=== PATIENT | male | born 1965 | race Caucasian/White ===

== ENCOUNTER 2023-11-05 18:17 | Observation (INO) ==
[2023-11-05 19:41] LABS: Basophils # (auto) 0.02 K/uL (0.00-0.20); Basophils % (auto) 0.3 %; Eosinophils # (auto) 0.11 K/uL (0.00-0.50); Eosinophils % (auto) 1.9 %; Hemoglobin 14.1 g/dl (14.0-18.0); Immature Granulocytes # (auto) 0.03 K/uL (0.01-0.20); Immature Granulocytes % (auto) 0.5 %; Lymphocytes # (auto) 1.66 K/uL (1.20-3.40); Mean Corpuscular Hemoglobin 33.7 pg (25.0-34.0); Mean Corpuscular Hgb Conc 34.4 g/dL (32.0-36.0); Mean Corpuscular Volume 98.1 fL (80.0-100.0); Mean Platelet Volume 9.8 fL (9.4-12.4); Monocytes # (auto) 0.73 K/uL (0.11-0.59); Monocytes % (auto) 12.3 %; Neutrophils # (auto) 3.38 K/uL (1.40-6.50); Platelet Count 145 K/uL (130-400); RDW Coefficient of Variation 12.5 % (11.5-14.5); RDW Standard Deviation 45.8 fL (36.4-46.3); Red Blood Count 4.18 M/uL (4.70-6.10); White Blood Count 5.93 K/ul (4.8-10.8)
[2023-11-05 19:54] LABS: Albumin Globulin Ratio 1.1 (0.9-2); Albumin Level 3.8 gm/dl (3.4-5.0); BUN Creatinine Ratio 12.9 (10-20); Bilirubin,Total 0.5 mg/dl (0.2-1.0); Calcium 8.6 mg/dl (8.6-10.3); Creatinine Clr Calc Pharmacy 81.8 ml/min; Est GFR (African American) 69.4 ml/min; Est GFR (Non-African American) 59.9 ml/min; Globulin 3.5 gm/dl (2.5-4.0); Potassium 3.5 mmol/L (3.5-5.1); Total Protein 7.3 gm/dl (6.0-8.3)
[2023-11-05 20:49] LABS: Troponin I High Sensitivity 43.5 pg/ml (0-20)
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
[2023-11-05] MEDS: OPTIRAY 320 100ml IV ONE (21:25)
[2023-11-05 21:27] LABS: Appearance Urine Clear (Clear); Bacteria Urine Automated Negative (Negative); Bilirubin Urine Negative (Negative); Blood Urine Trace (Negative); Color Urine Yellow; Epithelial Cell Urine Auto 0-5 /lpf (0-5); Glucose Urine UA Negative (Negative); Ketones Urine Negative (Negative); Leukocyte Esterase Urine Negative (Negative); Nitrite Urine Negative (Negative); Protein Urine Negative (Negative); RBC Urine Automated 0-4 /hpf (0-4); Specific Gravity Urine 1.007 (1.000-1.030); Urobilinogen Urine Negative (Negative); pH Urine 5.5 (4.5-7.5)
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
[2023-11-05 23:49] LABS: Amphetamines+Metham, Urine Neg (Neg); Barbiturates, Urine Neg (Neg); Benzodiazepine, Urine Neg (Neg); Cocaine, Urine Neg (Neg); MDMA (Ecstacy), Urine Neg (Neg); Marijuana, Urine Neg (Neg); Methadone, Urine Neg (Neg); Opiate, Urine Neg (Neg); Phencyclidine, Urine Neg (Neg)
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
[2023-11-05] MEDS ORDERED: POLYETHYLENE (MIRALAX) 17 GM PACK PO PRN (23:59)
[2023-11-05] MEDS ORDERED: ACETAMINOPHEN 325 MG TAB PO PRN (23:59)
[2023-11-06] MEDS ORDERED: LORazepam 1 MG in SYRINGE 0.5 ML IV PRN (00:04)
[2023-11-06 02:05] LABS: Urine Potassium 14.3 mmol/L
[2023-11-06 05:10] LABS: Troponin I High Sensitivity 37.9 pg/ml (0-20)
[2023-11-06 08:44] LABS: Chol HDL Ratio 3.6 (0-5)
[2023-11-06 08:58] LABS: Estimated Average Glucose 111 mg/dl; Hemoglobin A1C 5.5 % (4.5-5.6)
[2023-11-06] MEDS: OPTIRAY 320 125ml IV ONE (09:18)
[2023-11-06] MEDS: FOLIC ACID 1 MG TAB PO SCH (09:30)
[2023-11-06] MEDS: amLODIPine BESYLATE 5 MG TAB PO SCH (09:30)
[2023-11-06] MEDS: THIAMINE HCL 100 MG TAB PO SCH (09:30)
[2023-11-06 09:58] LABS: BUN Creatinine Ratio 15.2 (10-20); Calcium 8.8 mg/dl (8.6-10.3); Creatinine Clr Calc Pharmacy 117.4 ml/min; Est GFR (African American) 107.4 ml/min; Est GFR (Non-African American) 92.6 ml/min; Potassium 4.5 mmol/L (3.5-5.1)
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
--- NOTE | 2023-11-06 11:08 | Electrocardiogram Report ---
Test Reason : Blood Pressure : / mmHG Vent. Rate : 109 BPM Atrial Rate : 109 BPM P-R Int : 190 ms QRS Dur : 096 ms QT Int : 348 ms P-R-T Axes : 058 -14 042 degrees QTc Int : 468 ms Sinus tachycardia Otherwise normal ECG No previous ECGs available Confirmed by Manny Salinas ([id number]) on 11/06/2023 11:07:38 AM Referred By: REFERRED SELF Confirmed By:Manny Salinas
--- NOTE | 2023-11-06 11:23 | XCELERA ---
[id number] [id number]
--- NOTE | 2023-11-06 12:47 | CT Scan Report ---
Exam(s): CT HEAD Without Contrast ADDENDUM - Added by José Saldana MD on 11/05/2023 11:28 PM (-05:00) Mucous retention cyst in the LEFT MAXILLARY sinus. EXAM: CT Head Without Intravenous Contrast CLINICAL HISTORY: Reason for exam: Syncopal Episode. TECHNIQUE: Axial computed tomography images of the head/brain without intravenous contrast. CTDI is 36.678 mGy and DLP is 624.41 mGy-cm. Automated exposure control was utilized for the study. A dose lowering technique was utilized adhering to the principles of ALARA. COMPARISON: No relevant prior studies available. FINDINGS: No acute intracranial hemorrhage. No midline shift or mass effect. The territorial martinez-white matter differentiation is maintained throughout. Age-related cerebral volume loss. Periventricular and subcortical white matter hypoattenuation, consistent with chronic microangiopathy. The visualized orbits appear grossly unremarkable. The calvarium is intact. Mucous retention cyst in the LEFT medullary sinus. IMPRESSION: No acute intracranial hemorrhage, midline shift, or mass effect. Electronically signed by: José Saldana MD 11/05/23 23:28 PM
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
--- OUTSIDE RECORDS SUMMARY | 2023-11-06 15:01 | External Medical Summary | Continuity of Care Document ---
Author Name Unknown Organization [facility] [address] Address [address] [facility] [place], [place] [id number] [facility] [id number] Date(s): 10/27/23 - 10/27/23 [facility] [address] [facility] [place], [place] [id number] Encounter Diagnosis Abscess(Discharge Diagnosis) - 10/27/23 Discharge Disposition: Home or Self Care Attending Physician: MARIEL Cam Holly C Referring Physician: MARIEL Okeefe Kimberly A Allergies, Adverse Reactions, Alerts Substance Reaction Severity Status Allergy Not found in Search 1 Active 1seasonal allergies Assessment and Plan Extracted from: Title:Dermatology Office Visit Note Author:MARIEL Cam Holly C Date:10/27/23 1.Abscess PROCEDURE- I &D of cystic lesion.Risks and benefits reviewed including pain, bleeding, infection, failure, need for further procedure, scar formation, recurrence of the lesion.Timeout performed. Verbal consent obtained.After full discussion about risks and benefits and all questions answered, patient agreed to the procedure. The area was cleansed with isopropyl alcohol. Injection of 1% lidocaine used toAnesthetize.#11 blade used to pittman and incise the cyst and gentle pressure was applied to drain the cyst.Loculations were broken up with a small curette and any fluid was expressed.abscess was packed. Vaseline and pressure bandage applied.Home care instructions reviewed.Patient tolerated the procedure well. Start Bactrim DS 1 pill BID x 7 day will change packing and bandage daily. Return Thursday for nurse visit to check would and packing. Return in 2 weeks to check cyst. Advised patient to call with any problems, questions, or concerns. States understanding. Patient was seen independently,Dr Arana for immediate collaboration as needed during this visit. Immunizations Given and Recorded Vaccine Date Status Refusal Reason tetanus/diphtheria/pertuss, acel (Tdap) 09/08/22 Christine bennett SARS-CoV-2 (COVID-19) mRNA BNT-162b2 vax 1 12/03/20 Recorded SARS-CoV-2 (COVID-19) mRNA BNT-162b2 vax 2 11/12/20 Recorded influenza virus vaccine, inactivated 05/31/18 Give n hepatitis B adult vaccine 01/17/13 Recorded hepatitis B adult vaccine 08/17/12 Recorded hepatitis B adult vaccine 07/07/12 Recorded 1Result Comment: 2022-09-08: Historical information-source unspecified 2Result Comment: 2022-09-08: Historical information-source unspecified Medications amLODIPine 10 mg oral tablet Start: 07/27/23 9:52:00 EST, 1 tab, PO, Daily, Disp# 90 tab, Refills: 3, Pharmacy: [facility] Start Date: 07/27/23 Stop Date: 07/21/24 Status: Ordered Bactrim DS 800 mg-160 mg oral tablet Start: 10/27/23 9:17:00 EST, 1 tab, PO, bid, Disp# 14 tab, Refills: 0, take 1 pill twice a day, Pharmacy: [id number] Start Date: 10/27/23 Status: Ordered colchicine 0.6 mg oral tablet Start: 09/08/22 8:54:00 EST, See Instructions, Disp# 30 tab, Refills: 3, 1 tab PO Daily at the first sign of a gout flare followed by 0.6 mg one hour later, PRN: as needed for gout pain, Pharmacy: [facility] Start Date: 09/08/22 Status: Ordered hydrochlorothiazide-losartan 12.5 mg-100 mg oral tablet Start: 10/05/23 7:53:00 EST, 1 tab, PO, Daily, Disp# 90 tab, Refills: 3, Pharmacy: [facility] Start Date: 10/05/23 Stop Date: 09/29/24 Status: Ordered multivitamin Start: 10/05/23 7:26:00 EST, 1 tab, PO, Daily Start Date: 10/05/23 Status: Ordered Mental Status 10/27/23 Barriers to Learning one year None evide nt Mandatory Health Literacy Documentation Yes Health Literacy Communication Barriers N ever Primary Language Khmer Problem List Condition Confirmation Course Effective Dates Status Health atus Informant Gout Confirmed Active HTN, goal below 140/90 Confirmed Active Loss of hearing Confirmed Active Adult general medical exam Confirmed Active Seasonal allergies Confirmed Active Sinus 1 Confirmed Active Tobacco abuse Confirmed Active Weight disorder Confirmed Active 1sinus issues Diagnosis Diagnosis Type Effective Dates Health Status Clini radha Service Informant Abscess Discharge Diagnosis 10/27/23 Procedures Procedure Date Related Diagnosis Body Site Status Colonoscopy 1 10/19/18 Completed Polypectomy- pathology 2 10/19/18 Completed Right Knee Two Views. 3 11/29/12 C ompleted 1The examined portion of the ileum was normal. - One 5 mm polyp in the cecum, removed with a cold snare. Resected and retrieved. - The examination was otherwise normal. - The distal rectum and anal verge are normal on retroflexion view. 2A. Cecum, polyp, polypectomy: tubular adenoma. [facility] Social History Social History Type Response Smoking Status Never smoked cigaret marlon Sex Male 1snuff 1/2 can a day Dermatology Outpatient Note * MD Wei, Asya Mccain: MODIFY MD Wei, Asya Mccain: MODIFY, MODIFY Event Display: Dermatology Outpt Note Authored Date: [id number] Chief Complaint cyst on back History of Present Illness Here for cyst on back, has had for 15 yearswith no problems. Has always been large. 3 weeks ago saw his family doctor who checked it and a couple days later it became very tender, sore, red,and a few days ago started drainingon its owna white to yellowbloody discharge with a bad odor.No previous treatment. Review of Systems Eyes fevers, chills, fatigue, or red streaksfrom the cyst. Physical Exam Well developed, well nourished. no acute distress. normal mood and affect. alert and oriented x 3. Focused skin exam was performed today of theback. Proximately 7 cm, erythemic, tender, edematous,cystic lesion, withopeningwith yellowodorous drainage on left upper mid back. Further exam was declined. Patient denies any other lesions of concern. Assessment/Plan 1.Abscess PROCEDURE- I &D of cystic lesion.Risks and benefits reviewed including pain, bleeding, infection, failure, need for further procedure, scar formation, recurrence of the lesion.Timeoutperformed. Verbal consent obtained.After full discussion about risks and benefits and all questions answered, patient agreed to the procedure. The area was cleansed with isopropyl alcohol. Injection of 1% lidocaine used toAnesthetize.#11 blade used to pittman and incise the cyst and gentlepressure was applied to drain the cyst.Loculations were broken up with a small curette and any fluid was expressed.abscess was packed. Vaseline and pressure bandage applied.Home care instructions reviewed.Patient tolerated the procedure well. Start Bactrim DS 1 pill BID x 7 day will change packing and bandage daily. Return Thursday for nurse visit to check would and packing. Return in 2 weeks to check cyst. Advised patient to call with any problems, questions, or concerns. States understanding. Patient was seenindependently,Dr Arana for immediate collaboration as needed during this visit. Attestation Discussed with Maddi, I would recommend a wound culture with an I& D in future. At this point, on Bactrim and area has already been treated. Problem List/Past Medical History Ongoing Adult general medical exam Gout HTN, goal below 140/90 Loss of hearing Seasonal allergies Sinus Tobacco abuse Weight disorder Historical HTN (hypertension) Right knee pain Routine General Medical Examination at a [facility] Procedure/Surgical History Colonoscopy (10/19/2018)Polypectomy- pathology (10/19/2018)Right Knee Two Views. 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 Exercise - Occasional exercise Home/Environment - Low Risk Nutrition/Health - Low Risk Substance Abuse - Denies Substance Abuse Tobacco - Denies Tobacco Use Use:Unknown if ever smoked Smokeless tobacco use:Smokeless tobacco user within last 30 days - Comments: snuff 1/2 can a day Family History Seizure: Mother. Ulcerative colitis: Sister. Health Status Family Member(s) Electronic Signature on File Electronically Reviewed/Signed by: Maddi Cam PA-C Author Signature Dt/Tm:10/27/2023 10:40 AM Department of Dermatology Electronically Reviewed/Signed by: Asya Carvajal MD Cosigner Signature Dt/Tm: 10/27/2023 11:18 AM Department of Dermatology [facility] Patient Care team information Care Team Related Persons Name: JUAN JOSE ADAMES Elder Address: U Address: home [address] [place] [phone]
--- OUTSIDE RECORDS SUMMARY | 2023-11-06 15:01 | External Medical Summary | Continuity of Care Document ---
Author Name Unknown Organization [facility] [address] [facility] [address] [id number] Encounter [facility] [id number] Date(s): 10/05/23 - 10/05/23 [facility] [address] [facility] [address] [facility] [address] [facility], [facility] [address] [place] [address] [phone] Encounter Diagnosis Body mass index [BMI] 33.0-33.9, adult(Discharge Diagnosis) - 10/05/23 Adult general medical exam(Discharge Diagnosis) - 10/05/23 Family history of ulcerative colitis(Discharge Diagnosis) - 10/05/23 Gout(Discharge Diagnosis) - 10/05/23 HTN, goal below 140/90(Discharge Diagnosis) - 10/05/23 Sebaceous cyst(Discharge Diagnosis) - 10/05/23 Discharge Disposition: Home or Self Care Attending Physician: MARIEL Okeefe Kimberly A Allergies, Adverse Reactions, Alerts Substance Reaction Severity Status Allergy Not found in Search 1 Active 1seasonal allergies Assessment and Plan Extracted from: Title:CPE Author:MARIEL Okeefe Kimberly A Date:10/05/23 1.Adult general medical ex am - encouraged diet and exercise regimen appropriate for patient age and condition - routine dental and eye care per continuity -Vaccinations reviewed.Patient duefor _vaccine. -screening labs reviewed. CBC, lipid panel, A1C, and CMP already ordered. - screening for colon cancerwith colonoscopy due this year - continue to stay active, but always use caution - Follow up in1 yearfor CPE 2.Sebaceous cyst STATUS:Chronic stable. -Has been there for at least 15 years -Has not noticed any discharge or drainage, bleeding or pain -Does not think it has grown but is not certain -Is on the upper middle back -Approximately size of golf ball, if not bigger DATA:Labs reviewed. GOAL:Maintain stability. PLAN:Cont current monitoring. Referral to dermatology for excision. 3.Gout STATUS:Chronic stable. -Most recent uric acid was 8.4 -Was at camp the weekend prior to testing with poor diet and increased beer consumption -Uses Colchicine as needed with improvement -Typically only having 1-2 flares yearly DATA:Labs reviewed. GOAL:Maintain stability. PLAN:Cont current monitoring. Dietary changes discussed 4.HTN, goal below 140/90 STATUS:Chronic stable. DATA:Labs reviewed. GOAL:Maintain stability. PLAN:Cont current monitoring. . Continue Amlodipine Change Losartan to Losartan/HCTZ 100/12.5mg daily Continue to monitor blood pressures outside of the office Ideally pressures should remain less than 130/80 Please bring readings with you to each visit. Avoid excessive salt, NSAIDs, or tobacco use as these can precipitate elevated blood pressures Time spent on pre-visit plannin min Face to face time spent w/ patient:21 min Time spent documenting pertinent clinical information into the EMR:3 min Total time: 27 min Immunizations Given and Recorded Vaccine Date Status Refusal Reason tetanus/diphtheria/pertuss, acel (Tdap) 09/08/22 G iven SARS-CoV-2 (COVID-19) mRNA BNT-162b2 vax 1 12/03/20 [...] Daily, Disp# 90 tab, Refills: 3, Pharmacy: [facility] Start Date: 07/27/23 Stop Date: 07/21/24 Status: Ordered colchicine 0.6 mg oral tablet Start: 09/08/22 8:54:00 EST, See Instructions, Disp# 30 tab, Refills: 3, 1 tab PO Daily at the first sign of a gout flare followed by 0.6 mg one hour later, PRN: as needed for gout pain, Pharmacy: [facility] Start Date: 09/08/22 Status: Ordered hydrochlorothiazide-losartan 12.5 mg-100 mg oral tablet Start: 10/05/23 7:53:00 EST, 1 tab, PO, Daily, Disp# 90 tab, Refills: 3, Pharmacy: [facility] Start Date: 10/05/23 Stop Date: 09/29/24 Status: Ordered multivitamin Start: 10/05/23 7:26:00 EST, 1 tab, PO, Daily Start Date: 10/05/23 Status: Ordered Mental Status 10/05/23 Barriers to Learning one year None evide nt Mandatory Health Literacy Documentation Yes Health Literacy Communication Barriers N ever Primary Language Nepali Problem List Condition Confirmation Course Effective Dates Status Health St atus Informant Gout Confirmed Active HTN, goal below 140/90 Confirmed Active Loss of hearing Confirmed Active Adult general medical exam Confirmed Active Seasonal allergies Confirmed Active Sinus 1 Confirmed Active Tobacco abuse Confirmed Active Weight disorder Confirmed Active 1sinus issues Diagnosis Diagnosis Type Effective Dates Health Status Clinical Service Informant Adult general medical exam Discharge Diagnosis 10/05/23 Gout Discharge Diagnosis 10/05/23 HTN, goal below 140/90 Discharge Diagnosis 10/05/23 Family history of ulcerative colitis Discharge Diagnosis 10/05/23 Non-Specified Body mass index [BMI] 33.0-33.9, adult Discharge Diagnosis 10/05/23 Non-Specified Sebaceous cyst Discharge Diagnosis 10/05/23 Non-Specified Procedures Procedure Date Related Diagnosis Body Site [...] 2A. Cecum, polyp, polypectomy: tubular adenoma. [facility] Vital Signs Most recent to oldest [Reference Range]: 1 Height 180.2 cm (10/05/23 7:28 AM) Patient Weight 108.7 kg (10/05/23 7:28 AM) Body Mass Index 33.47 kg/m2 (10/05/23 7:28 AM) Heart Rate 119 bpm (10/05/23 7:28 AM) Respiratory Rate 18 br/min (10/05/23 7:28 AM) Blood Pressure 152/88mmHg (10/05/23 7:28 AM) Cuff Pulse Pressure 64 mmHg (10/05/23 7:28 AM) Social History Social History Type Response Smoking Status Never smoked cigaret marlon Sex Male 1snuff 1/2 can a day [facility]CM Outpt Note * MARIEL Okeefe, Barbie Madrid: PERFORM Event Display: FCM Outpt Note Authored Date: Chief Complaint CPE. Cyst on back. History of Present Illness CPE: _ Here for a health maintenance complete physical exam and lab review PMH includes HTN and gout. HTN: -has known white coat response in office -Does not check BP at home -No claudication, chest pain, SOB, palpitations, tachycardia, dizziness, lightheadedness, weakness,near syncope, syncope, nausea, vomiting, diarrhea, constipation, cough, LE edema, headaches, blurred vision, loss of vision, confusion or epistaxis. Sebaceous cyst: -Has been there for at least 15 years -Has not noticed any discharge or drainage, bleeding or pain -Does not think it has grown -Is on the upper middle back -Approximately size of golf ball, if not bigger Sciatica (R) -Chronic, present for approx 4 years -Does see chiropractor regularly -Pain is managed well -No radiation of the symptoms No hospitalizations in the last 12 months nor severe acute injuries not accounted for in chart. Routine dental care without complaint Routine eye care without issue presently,noglasses/contacts. Immunizations reviewed in EHR Histories Family history updated Social history updated -Diet: Rare red meat other than venison. -Exercise: Occasional -Tobacco: Quit chewing tobacco in July -Alcohol: Socially -Drug: Denies -Sleep: WNL Procedure history updated Feeling safe at home and in relationships without concern. 10 system ROS completed and negative except as noted above. . Review of Systems ROS per HPI Physical Exam Vitals & Measurements HR:119(Monitored) RR:18 BP:152/88 SpO2:98% HT:180.2cm WT:108.7kg WT:108.700kg(Dosing) BMI:33.47 PHQ2 Data(Data Documented on:10/05/2023 07:26) Emotional health assessment NEGATIVE General: Alert and oriented,No acute distress,Very pleasant Well groomed Eye: Pupils are equal, round and reactive to light,Extraocular movements are intact,Normal conjunctiva. HENT: Normocephalic, Neck: Supple,No lymphadenopathy. Respiratory: Lungs are clear to auscultation,Respirations are non- labored,Breath sounds are equal,Symmetrical chest wall expansion. Cardiovascular: Normal rate,Regular rhythm,No murmur,No gallop,No edema. Abdomen: Normoactive BS x 4. No R/G/R. No organomegaly. Soft, nontender, nondistended Lymphatics: No submandibular, anterior or posterior cervical adenopathy palpable. Musculoskeletal:No functional arthritic changes FROM Normal gait. Integumentary: Warm,[employer].Large sebaceous cyston upper mid back Neurologic: Alert,Oriented,Cranial Nerves II-XII are grossly intact. Cognition and Speech: Oriented,Speech clear and coherent,Functional cognition intact. Psychiatric: Cooperative,Appropriate mood & affect,Normal judgment. Assessment/Plan 1.Adult general medical exam - encouraged diet and exercise regimen appropriate for patient age and condition - routine dental and eye care per continuity -Vaccinations reviewed.Patient duefor _vaccine. -screening labs reviewed. CBC, lipid panel, A1C, and CMP already ordered. - screening for colon cancerwith colonoscopy due this year - continue to stay active, but always use caution - Follow up in1 yearfor CPE 2.Sebaceous cyst STATUS:Chronic stable. -Has been there for at least 15 years -Has not noticed any discharge or drainage, bleeding or pain -Does not think it has grown but is not certain -Is on the upper middle back -Approximately size of golf ball, if not bigger DATA:Labs reviewed. GOAL:Maintain stability. PLAN:Cont current monitoring. Referral to dermatology for excision. 3.Gout STATUS:Chronic stable. -Most recent uric acid was 8.4 -Was at camp the weekend prior to testing with poor diet and increased beer consumption -Uses Colchicine as needed with improvement -Typically only having 1-2 flares yearly DATA:Labs reviewed. GOAL:Maintain stability. PLAN:Cont current monitoring. Dietary changes discussed 4.HTN, goal below 140/90 STATUS:Chronic stable. DATA:Labs reviewed. GOAL:Maintain stability. PLAN:Cont current monitoring. .Continue Amlodipine Change Losartan to Losartan/HCTZ 100/12.5mg daily Continue to monitor blood pressures outside of the office Ideally pressures should remain less than 130/80 Please bring readings with you to each visit. Avoid excessive salt, NSAIDs, or tobacco use as these can precipitate elevated blood pressures Time spent on pre-visit plannin min Face to face time spent w/ patient:21 min Time spent documenting pertinent clinical information into the EMR:3 min Total time: 27 min Problem List/Past Medical History Ongoing Adult general medical exam Gout HTN, goal below 140/90 Loss of hearing Seasonal allergies Sinus Tobacco abuse Weight disorder Historical HTN (hypertension) Right knee pain Routine General Medical Examination at a Health Care Facility Procedure/Surgical History Colonoscopy (10/19/2018)Polypectomy- pathology (10/19/2018)Right Knee Two Views. (11/29/2012) Medications amLODIPine(amLODIPine 10 mg oral tablet), 10 mg= 1 tab, PO, Daily, 3 refills colchicine(colchicine 0.6 mg oral tablet), See Instructions, PRN, 3 refills hydrochlorothiazide-losartan(hydrochlorothiazide-losartan 12.5 mg-100 mg oral tablet), 1 tab, PO, Daily, 3 refills multivitamin, 1 tab, PO, Daily Allergies Allergy Not found in Search Social [...] Ulcerative colitis: Sister. Health Status Family Member(s) Immunizations Vaccine Date Status tetanus/diphtheria/pertuss, acel (Tdap) 09/08/2022 Given SARS-CoV-2 (COVID-19) mRNA BNT-162b2 vax 12/03/2020 Recorded Comments : 2022-09-08: Historical information-source unspecified SARS-CoV-2 (COVID-19) mRNA BNT-162b2 vax 11/12/2020 Recorded Comments : 2022-09-08: Historical information-source unspecified influenza virus vaccine, inactivated 05/31/2018 Given hepatitis B adult vaccine 01/17/2013 Recorded hepatitis B adult vaccine 08/17/2012 Recorded hepatitis B adult vaccine 07/07/2012 Recorded Recommendations Health Maintenance Pending(in the next year) OverDue Adult Influenza Vaccine due02/27/23and every 1year Due Adult COVID-19 Vaccination due10/05/23Unknown Frequency Adult Social Determinants of Health Screening due10/05/23Unknown Frequency Hepatitis C Screening due10/05/23One-time only Shingles Vaccine due10/05/23One-time only Satisfied(in the past 1 year) Satisfied Body Mass Index on10/05/23.Satisfied by MAHNAZ Freeman Vanessa T Electronic Signature on File Electronically Reviewed/Signed by: Barbie Okeefe PA-C Author Signature Dt/Tm:10/05/2023 09:25 AM Department of Family Medicine [facility] Patient Care team information Care Team Related Persons Name: YANETH ADAMESMiriam Friedman Address: Address: home [address] [facility] [place] [phone]
--- NOTE | 2023-11-06 19:44 | Billing Data ---
Date of Service November 06, 2023 Coding Level of Care Code 10254 INT INP/OBS CARE
== END 2023-11-06 14:25 | disposition home or self-care (01) | DRG 312 ==
LOC: ED 18:17 → SUATTDRO 23:57 → EDINP 23:57 → INTOOBSV 23:57 → EDINP 11-06 03:06

== ENCOUNTER 2024-03-24 05:47 | Observation (INO) ==
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
[2024-03-24] MEDS: LACTATED RINGER'S 1,000 ML IV SCH ×2 (06:24→14:13)
[2024-03-24] MEDS ORDERED: LIDOCAINE 2% 2 ML VIAL/AMP(20MG/ML) INFIL ONE ×2 (06:37→08:15)
[2024-03-24] MEDS ORDERED: MIDAZOLAM HCL 1 MG/ML 2ML VIAL ONE ×2 (06:37→07:14)
[2024-03-24] MEDS ORDERED: PROPOFOL IV EMULSION 10 MG/ML 20 ML VIAL IV ONE ×2 (06:37→08:15)
[2024-03-24] MEDS ORDERED: ONDANSETRON INJ 2 MG/ML 2 ML VIAL ONE (06:37)
[2024-03-24 06:39] LABS: BUN Creatinine Ratio 15.7 (10-20); Calcium 10.3 mg/dl (8.6-10.3); Creatinine Clr Calc Pharmacy 97.6 ml/min; Est GFR (African American) 94.1 ml/min; Est GFR (Non-African American) 81.2 ml/min; Potassium 3.6 mmol/L (3.5-5.1)
[2024-03-24] MEDS ORDERED: ePHEDrine sulfate 50 MG/ML AMP IV PRN (07:04)
[2024-03-24] MEDS ORDERED: ATROPINE SULFATE 0.1 MG/ML 10ML SYR IV PRN (07:04)
[2024-03-24] MEDS ORDERED: fentaNYL citrate PF 100 MCG/2 ML VIAL IV PRN (07:04)
[2024-03-24] MEDS ORDERED: HYDROmorphone INJ 2 MG/ML SYR/VIAL IV PRN (07:04)
[2024-03-24] MEDS ORDERED: PROMETHAZINE HCL 6.25 MG in SODIUM CHLORIDE 0.9% 50 ML IV PRN (07:04)
[2024-03-24] MEDS ORDERED: ONDANSETRON INJ 2 MG/ML 2 ML VIAL IV PRN ×2 (07:04→13:23)
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
[2024-03-24] MEDS ORDERED: fentaNYL citrate PF 100 MCG/2 ML VIAL ONE ×2 (07:14→11:01)
[2024-03-24] MEDS: ceFAZolin 2000MG 2,000 MG/15 ML SYR IV SCH ×2 (08:08→16:02)
[2024-03-24] MEDS ORDERED: DEXAMETHASONE SOD INJ 4 MG/ML VIAL ONE (08:15)
[2024-03-24] MEDS ORDERED: ROCURONIUM BROMIDE 10 MG/ML 5 ML VIAL IV ONE (08:15)
[2024-03-24] MEDS ORDERED: ePHEDrine sulfate 50 MG/ML AMP ONE (10:40)
[2024-03-24] MEDS: BUPIVACAINE 0.5 % 5 MG/1 ML MPF 30ML VIAL ONE (11:13)
[2024-03-24] MEDS ORDERED: ceFAZolin 330 MG/ML 1 GM VIAL ONE (11:22)
[2024-03-24] MEDS ORDERED: SUGAMMADEX SODIUM 200 MG/2 ML VIAL IV ONE (11:24)
--- NOTE | 2024-03-24 11:46 | Operative Report ---
PG Post Operative Report Pre & Post Diagnosis Operation Date: 03/24/24 07:30 Pre-Op Diagnosis: Renal Lesion Post-Op Diagnosis: Renal Lesion I identified the patient and participated in the time-out.: Yes Procedure Operation Date: 03/24/24 07:30 Actual Procedures p Robotic Assisted Laparoscopic Partial Nephrectomy - Right(Right) - Dmitri Melgoza MD Surgeon Dmitri Melgoza MD Cardiac Surgeon ESTELLA Elena, Grabiel Wahl DO. Estimated Blood Loss 100 Findings Consistent with Post-Op Diagnosis Specimens Right renal mass Drains Ng catheter per urethra Anesthesia Type General Complications none Disposition Accompanied Patient To Recovery: Yes Disposition: Recovery Room Indications This is a 59-year-old male followed by urology for renal mass. Due to concern for possible malignancy, he presents to the OR for robot-assisted right partial nephrectomy Description of Procedure The patient was identified and informed consent was obtained. He was marked on the right side and was brought to the operating room where general anesthesia was initiated. He was placed in a flank position with the right side elevated. All pressure points were carefully padded. A timeout was then performed. A surgical marker was used to draw a line approximately 7 cm to the left of the umbilicus, in the mid clavicular area. Anticipated port sites were marked starting approximately 2 fingerbreadths below the costal margin. Subsequent ports were anticipated to be 6 to 7 cm spaced down this line. An incision was made at the second anticipated site, then dissection was carried down to the fascia. A Veress needle was used to obtain access to the peritoneum. Good position was confirmed with a negative aspiration, appropriate drop test and low opening insufflation pressure. The abdomen was then inflated with CO2 to 15 mmHg. The first robotic port was then placed and the camera was inserted. The abdominal cavity was surveyed. There were minimal adhesions. No injuries were appreciated to any intra-abdominal contents. The remaining 3 robotic ports were placed under direct visualization. A 12 mm assistant banquet manager port was then placed in the midline above the umbilicus. The robot was then docked. I reflected the colon along the white line of Toldt to expose Gerota's fascia. The duodenum was Kocherized. He had a lot of perinephric fat. Once the colon was sufficiently reflected, the gonadal vessels and left ureter were identified. These were then dissected cephalad to identify the renal hilum. He had 1 renal artery and 1 renal vein. Adequate windows were dissected to facilitate placement of bulldog clamps on both vessels. I then turned my attention toward the renal mass. On preoperative imaging it was toward the lower pole and somewhat lateral. Gerota's fascia was incised and the fat was dissected away to expose the renal mass and capsule. There was some sticky fat over the mass itself. The mass was more lateral and posterior than expected and required a fair amount of mobilization of the kidney. The intraoperative ultrasound was then introduced and used to survey this area of the kidney. The location and boundaries of the mass were confirmed. The bulldog clamps were then applied to the renal artery and the renal vein. There was good blanching of the kidney. The renal mass was sharply excised leaving a margin of normal-appearing kidney tissue around the mass itself. Any point bleeding vessels were cauterized. Once the mass was free from the kidney, renorrhaphy was performed using a 2 layer approach. A 2-0 V-Loc suture was placed in the deep portion of the kidney defect and secured using Hem-o-nati clips on both sides. The renal capsule was then reapproximated using interrupted 2-0 V-Loc sutures also secured with Hem-o-loks and Lapra-Ty's. There was good hemostasis at this point. The bulldog clips were then removed and there was still good hemostasis. Total warm ischemia time was 15 minutes. A layer of Surgicel, Floseal and Tisseel were applied to the resection area and the hilum. The renal mass was placed in a specimen bag. Final survey of the abdomen revealed good hemostasis and no injury to intra-abdominal contents. The robot was dedocked. The specimen was extracted through the assistant banquet manager port in the midline and was sent for analysis labeled as left renal mass. The incisions were then closed. The extraction site was closed using a deep 0 Vicryl running suture for the fascia. All wounds were anesthetized using 0.5% Marcaine. Skin was closed using running subcuticular 4-0 Monocryl for the extraction site and buried interrupted 4-0 Monocryls for the robot sites. The patient was then awakened from anesthesia and brought to the PACU in stable condition. All sponge and instrument counts were correct at the end of the case. Of note, ESTELLA Elena, acted as bedside assistant banquet manager for the majority of the case, helping with initial positioning, access, retraction, dissection and with closing. Grabiel Wahl DO acted as bedside assistant banquet manager for the mass excision and renorrhaphy. I attest to the content of the Intraoperative Record and any orders documented therein. Any exceptions are noted below.
--- NOTE | 2024-03-24 12:58 | Anesthesiology Progress Note ---
Date of Service March 24, 2024 Anesthesia Post Procedure Vital Signs Vital Signs: Temp Pulse Pulse Resp BP Pulse Ox O2 Del Method 03/24/24 12:56 36.6 C 79 18 139/79 96 Room Air 03/24/24 12:35 78 21 124/74 95 Room Air 03/24/24 12:25 36.4 C L 83 12 134/91 94 Room Air 03/24/24 12:15 81 14 142/89 H 96 Room Air 03/24/24 12:05 81 18 148/88 H 97 Room Air 03/24/24 11:55 82 21 135/81 94 Room Air 03/24/24 11:45 85 22 138/85 99 Oxymask 03/24/24 11:38 36.4 C L 88 26 H 137/85 98 Oxymask 03/24/24 06:28 146/96 H 03/24/24 06:02 36.6 C 80 18 165/100 H 98 Room Air O2 Flow Rate 03/24/24 12:56 03/24/24 12:35 0 03/24/24 12:25 0 03/24/24 12:15 0 03/24/24 12:05 0 03/24/24 11:55 0 03/24/24 11:45 8 03/24/24 11:38 8 03/24/24 06:28 03/24/24 06:02 Pain Intensity Right Abdomen: Pain Intensity: 1 Transfer of Care Handoff Completed per policy Notes Mental Status: alert / awake / arousable and participated in evaluation Patient Amnestic to Procedure: Yes Nausea / Vomiting: adequately controlled Pain: adequately controlled Airway Patency, RR, SpO2: stable & adequate BP & HR: stable & adequate Hydration State: stable & adequate Anesthetic Complications: no major complications apparent and Pt Satisfied with anesthetic care
[2024-03-24] MEDS ORDERED: oxyCODONE HCL IR 5 MG TAB (IMMEDIATE RELEASE) PO PRN ×2 (13:23)
[2024-03-24] MEDS ORDERED: MoRPHine SULFATE 2 MG/ML CARP IV PRN ×2 (13:23)
[2024-03-24] MEDS: ACETAMINOPHEN 325 MG TAB PO SCH (14:18)
[2024-03-24] MEDS: HEPARIN SOD 5,000 UNIT/0.5 ML VIAL SQ SCH (20:08)
[2024-03-24] MEDS: METOPROLOL SUCC 50MG EXT REL TAB PO SCH (20:08)
[2024-03-24] MEDS: ROSUVASTATIN CALCIUM 10 MG TAB PO SCH (20:08)
[2024-03-24] MEDS: DOCUSATE SODIUM 100 MG CAP PO SCH (20:42)
--- NOTE | 2024-03-25 07:18 | Urology Progress Note ---
Date of Service March 25, 2024 Assessment & Plan (1) Renal mass of unknown nature: Plan: He is recovering appropriately s/p robot-assisted laparoscopic partial nephrectomy. We will plan on catheter removal this morning. Assuming he is still tolerating a diet, able to ambulate pain is well-controlled, we will plan on discharge home. Admission and Anticipated Discharge Date Admission Date: March 24, 2024 Subjective Feeling well this morning Tolerating a diet with no nausea or vomiting Minimal abdominal pain, feels some gas He is passing flatus Has not been up walking yet Physical Exam Physical Exam: Well-appearing, NAD Gastrointestinal (Abdomen): Incisions intact, Dermabond in place. Minimal bruising. Genitourinary: Clear yellow urine in Ng. Results & Data Vital Signs (Past 12 Hours) Vital Signs Temp Pulse Resp BP Pulse Ox O2 Del Method 03/25/24 03:33 36.6 C 64 18 159/90 H 97 Room Air 03/24/24 23:10 36.6 C 69 20 144/89 H 97 Room Air 03/24/24 19:24 36.5 C 75 17 136/80 98 Room Air PG Care Time/CCT Total # of Minutes Spent Total Time Spent with Patient: Total time spent is greater than 50% in coordination of care (as documented) at patient's floor/unit and/or counseling patient: Coding Level of Care Code None Diagnoses Renal mass of unknown nature N28.89
--- NOTE | 2024-03-25 07:22 | Discharge Summary ---
Date of Service March 25, 2024 Admission HPI Per Admitting Provider This is a 59-year-old male followed by urology for right-sided renal mass. He underwent robot-assisted partial nephrectomy on 03/24/2024 and was admitted postoperatively in good condition. Admission Exam Per Admitting Provider Constitutional well developed and well nourished; no acute distress Eyes + anicteric sclerae; pupils not irregular Respiratory normal respiratory effort; no respiratory distress, does not use accessory muscles and no cough Cardiovascular well perfused Chest (Breasts) Additional Comments: Median sternotomy incision appears to be healing well. Gastrointestinal (Abdomen) Inspection/Auscultation: abdomen normal to inspection; abdomen not distended Musculoskeletal Extremities: extremities normal to inspection Skin normal turgor; no rashes and no lesions Neurologic moves all extremities and awake Psychiatric Orientation: alert and oriented x 3 Principal Diagnosis Renal mass of unknown nature, concern for malignancy Discharge Exam Well-appearing, NAD Gastrointestinal (Abdomen) Incisions intact, Dermabond in place, minimal incisional tenderness. Discharge Data Allergies Allergy/AdvReac Type Severity Reaction Status Date / Time No Known Allergies Allergy Verified 03/24/24 06:00 Procedures Performed Operation Date: 03/24/24 07:30 Actual Procedures p Robotic Assisted Laparoscopic Partial Nephrectomy - Right(Right) - Dmitri Melgoza MD Hospital Course (1) Renal mass of unknown nature: He underwent partial nephrectomy on 03/24/2024. By 03/25, he was tolerating a diet, pain was well-controlled. He is going to make sure she is able to ambulate without any difficulty before discharge. Plan is for discharge home on 03/25/2024. Total Time Total Time Spent Total Time Spent (In Minutes): 15 Discharge Plan Discharge Items Patient Disposition: Home - Self-Care Reason For Visit: Renal Lesion Discharge Diagnosis: renal mass Activity: Per Instructions section Non-emergency contact: Urologist Call non-emergency contact if: your pain is not controlled, you have a fever, your temperature is above 101, your wound has increased redness, your wound has increased drainage and your wound pain has increased Follow-up/Referrals: Masha Osorio DO [Primary Care Provider] - Diet: Regular Addtl Attending Provider Instructions: The surgery you had was: Robot-assisted partial nephrectomy Please take all medications as prescribed and keep all follow-ups as scheduled. Please call our office at [phone] with any questions, concerns or need to reschedule appointments for any reason. We are happy to assist you. Medications: Take Tylenol every 6 hours for baseline pain control If you are prescribed narcotics such as oxycodone, please take it according to the instructions on the label. Activity/Recovering at home: We recommend having someone with you for the first few days after surgery to help care for you. It is okay to shower tomorrow. Please avoid swimming, bathing or using hot tub until incisions are well healed. Avoid driving until you are not requiring pain medication any further. Walk at least a few times a day. Increase your distance, as you feel able. Stairs in your home are okay. Please avoid strenuous or sexual activity until your follow-up. No lifting anything more than 10 pounds for 6 to 8 weeks Use a stool softener (i.e. Colace) to prevent constipation, especially the first two weeks post operatively. You should not be straining/pushing to have a bowel movement. Follow-up: We will have you come to the urology office in 1-2 weeks for a wound check. Call [facility] at [phone] if you experience: Chest pain or trouble breathing (call 311 or go to the hospital). Fever of 101F or higher Symptoms of infection at incision site, including redness or swelling, warmth, or bad-smelling drainage Pain that is not controlled with medicines Blood in the urine after the first 2-3 days or thick blood with clots. Pending Studies at Discharge: No Stand-Alone Forms: My [facility] Medications and DC Order Prescriptions: Continued metoprolol succinate 50 mg tablet extended release 24 hr 50 mg PO QPM aspirin 81 mg tablet,delayed release (DR/EC) 81 mg PO QAM rosuvastatin 10 mg tablet 10 mg PO QPM multivitamin Tablet 1 tab PO QAM colchicine 0.6 mg tablet 0.6 mg PO DAILY PRN (Reason: gout) acetaminophen [Tylenol] 325 mg Capsule 650 mg PO QID PRN (Reason: Pain) Discharge Orders: Discharge Order (Routine); Ordered 03/25/24 Ordered By: Dmitri Melgoza Admission Data Admit Date/Time: 03/24/24 11:42 Attending Provider: Dmitri Melgoza Admit Provider: Dmitri Melgoza Primary Care Provider: Masha Osorio Coding Level of Care Code 73455 IN/OBS DISCH 30 MIN/LESS Diagnoses Renal mass of unknown nature N28.89 Time Spent (min) 15
[2024-03-25 07:24] LABS: Basophils # (auto) 0.01 K/uL (0.00-0.20); Basophils % (auto) 0.1 %; Eosinophils # (auto) 0.03 K/uL (0.00-0.50); Eosinophils % (auto) 0.2 %; Hematocrit (blood only) 39.5 % (42.0-52.0); Hemoglobin 13.1 g/dl (14.0-18.0); Immature Granulocytes # (auto) 0.06 K/uL (0.01-0.20); Immature Granulocytes % (auto) 0.5 %; Lymphocytes # (auto) 1.94 K/uL (1.20-3.40); Lymphocytes % (auto) 16.1 %; Mean Corpuscular Hemoglobin 30.8 pg (25.0-34.0); Mean Corpuscular Hgb Conc 33.2 g/dL (32.0-36.0); Mean Corpuscular Volume 92.7 fL (80.0-100.0); Mean Platelet Volume 9.6 fL (9.4-12.4); Monocytes # (auto) 0.81 K/uL (0.11-0.59); Monocytes % (auto) 6.7 %; Neutrophils # (auto) 9.18 K/uL (1.40-6.50); Neutrophils % (auto) 76.4 %; Platelet Count 173 K/uL (130-400); RDW Coefficient of Variation 14.2 % (11.5-14.5); RDW Standard Deviation 47.9 fL (36.4-46.3); Red Blood Count 4.26 M/uL (4.70-6.10); White Blood Count 12.03 K/ul (4.8-10.8)
[2024-03-25 07:43] LABS: BUN Creatinine Ratio 19.4 (10-20); Calcium 9.3 mg/dl (8.6-10.3); Creatinine Clr Calc Pharmacy 101.6 ml/min; Est GFR (African American) 98.8 ml/min; Est GFR (Non-African American) 85.2 ml/min; Potassium 3.9 mmol/L (3.5-5.1)
== END 2024-03-25 09:42 | disposition home or self-care (01) ==
LOC: ASU 05:47 → 3W 11:42 → INTOOBSV 11:42